=== PATIENT | male | born 1940 | race Caucasian/White ===

== ENCOUNTER 2017-01-23 13:56 | Emergency (ER) | payer MEDICARE, BC ==
[2017-01-23 14:16] VITALS: BP 139/76
--- NOTE | 2017-01-23 14:37 | UC ---
Shoulder Pain HPI - HPI Summary HPI Summary: The patient comes in today for: 1. Shoulder pain: Onset: One month. Palliative/provocative: No Rx taken. Abduction makes it worse. Quality: [place]: Right shoulder. Severity: 3/10 Time: Constant. Associated symptoms: Numbness/weakness: None. Injury: He fell on the left shoulder. He slipped on the ice. *. - History of Current Complaint Chief Complaint: UCGeneralIllness Stated Complaint: RIGHT SHOULDER PAIN Time Seen by Provider: 01/23/17 14:31 Hx Obtained From: Patient - Allergies/Home Medications Allergies/Adverse Reactions: Allergies Allergy/AdvReac Type Severity Reaction Status Date / Time Celecoxib [From Celebrex] Allergy Severe Hives Verified 01/23/17 14:03 Statins Allergy Severe irregular Verified 01/23/17 14:03 heart rate Terbinafine [From Lamisil] Allergy Severe Hives Verified 01/23/17 14:03 Home Medications: Home Medications Amoxicillin (*) [Amoxicillin 875 MG (*)] 1 tab PO Q8HR 01/23/17 [History Confirmed 01/23/17] Demeclocycline TAB* [Declomycin TAB*] 300 mg PO SEE INSTRUCTIONS 01/23/17 [ History Confirmed 01/23/17] PMH/Surg Hx/FS Hx/Imm Hx Previously Healthy: No - Low sodium. Endocrine History Of: Denies: Diabetes, Thyroid Disease, Hyperthyroidism, Hypothyroidism, Dyslipidemia Cardiovascular History Of: Reports: Cardiac Disorders - History of A-fib.- No longer in A-Fib, Hypertension - On amlodipine for blood pressure. Denies: Pacemaker/ICD, Myocardial Infarction, Congestive Heart Failure, Atrial Fibrillation, Deep Vein Thrombosis, Bleeding Disorders Respiratory History Of: Denies: COPD, Asthma, Bronchitis, Pneumonia, Pulmonary Embolism GI/ History Of: Denies: Gastroesophageal Reflux, Ulcer, Gastrointestinal Bleed, Gall Bladder Disease, Kidney Stones, Diverticulitis, Renal Disease, Urosepsis Neurological History Of: Denies: TIA, CVA, Dementia, Seizures, Migraine Psychological History Of: Denies: Anxiety, Depression, Bipolar Disorder, Schizophrenia, Post Traumatic Stress Disorder Cancer History Of: Denies: Lung Cancer, Colorectal Cancer, Breast Cancer, Prostate Cancer, Cervical Cancer Other History Of: Negative For: HIV, Hepatitis B, Hepatitis C, Anticoagulant Therapy - Surgical History Surgical History: Yes Surgery Procedure, Year, and Place: CAROTID ARTERECTOMY, APPENDECTOMY - Family History Known Family History: Positive: Cardiac Disease, Hypertension - Social History Occupation: Retired Alcohol Use: None Substance Use Type: None Smoking Status (MU): Former Smoker When Did the Patient Quit Smoking/Using Tobacco: 1980 Review of Systems Constitutional: Negative Skin: Negative Eyes: Negative ENT: Negative Respiratory: Negative Cardiovascular: Negative Gastrointestinal: Negative Genitourinary: Negative Musculoskeletal: Arthralgia, Myalgia All Other Systems Reviewed And Are Negative: Yes Physical Exam Triage Information Reviewed: Yes Appearance: Well-Appearing, No Pain Distress, Well-Nourished Vital Signs: Initial Vital Signs Temp 99.2 F 01/23/17 14:10 Pulse 59 01/23/17 14:10 Resp 16 01/23/17 14:10 BP 139/76 01/23/17 14:10 Pulse Ox 99 01/23/17 14:10 Vital Signs Reviewed: Yes Eyes: Positive: Conjunctiva Clear. Negative: Discharge ENT: Positive: Hearing grossly normal. Negative: Pharyngeal erythema, Nasal congestion, Nasal drainage, TM bulging, TM dull, TM red, Tonsillar swelling, Tonsillar exudate Dental: Negative: Gross Decay/Caries @, Dental Fracture @ Neck: Positive: Supple, Nontender, No Lymphadenopathy. Negative: Nuchal Rigidity Respiratory: Positive: Lungs clear, No respiratory distress, No accessory muscle use. Negative: Crackles, Wheezing Cardiovascular: Positive: RRR, No Murmur Abdomen Description: Positive: Nontender, No Organomegaly, Soft. Negative: Distended, Guarding Musculoskeletal: Positive: Strength Intact, ROM Intact, Other: - He has tenderness inferior laterally of the right shoulder. No biceps tendon tenderness. There is good internal rotation and external rotation, but there was some tenderness with internal rotation stress. Neurological: Positive: Alert, Muscle Tone Normal Psychological: Positive: Age Appropriate Behavior, Consolable Skin: Negative: rashes, breakdown Diagnostics - Laboratory Diagnostic Studies Completed/Ordered: Right shoulder: no fracture or calcific tendonitis - Radiology No standard instances Xray Interpretation: No Acute Changes Radiology Interpretation Completed By: Radiologist Shoulder Course/Dx - Course Course Of Treatment: Patient was told of his treatment options. He wanted prescription ibuprofen. - Differential Dx/Diagnosis Differential Diagnosis/HQI/PQRI: Bursitis Provider Diagnoses: Right shoulder tendonitis, bursitis Discharge - Discharge Plan Condition: Stable Disposition: HOME Patient Education Materials: Shoulder Sprain (ED), Tendinitis (ED), Shoulder Bursitis (ED) Referrals: No Primary Care Phys,NOPCP [Primary Care Provider] - 1 Week (Please see your primary care provider in about a week. If you don't have a primary care provider, please reference the included sheet of local provider. If you get worse, please be seen sooner.)
--- NOTE | 2017-01-23 15:05 | RAD ---
INDICATION: Right shoulder pain COMPARISON: None TECHNIQUE: AP, lateral, and oblique views were obtained. FINDINGS: The bony structures, joint spaces, and soft tissues are normal for age. IMPRESSION: NO ACUTE BONY FINDINGS OR SIGNIFICANT OSTEOARTHRITIC CHANGE
== END 2017-01-23 15:33 | disposition home or self-care (01) ==
LOC: UCCORT 13:56
DX: M75.81 Other shoulder lesions, right shoulder (principal); M75.51 Bursitis of right shoulder; E87.1 Hypo-osmolality and hyponatremia; I10 Essential (primary) hypertension; Z87.891 Personal history of nicotine dependence
CPT/HCPCS: 99212; G0463

== ENCOUNTER 2017-09-01 13:39 | Day surgery (SDC) | payer MEDICARE, BC ==
--- NOTE | 2017-08-26 19:53 | HP ---
CC: Dr. Nayak; Dr. Dayron Frausto * PREOPERATIVE HISTORY AND PHYSICAL: DATE OF ADMISSION: 09/01/17 This patient is scheduled for a same day surgery admission by Dr. Pereira on 09/01/17. ATTENDING SURGEON: Rolando Pereira MD * (dictated by Sindy Muhammad NP). CHIEF COMPLAINT: Right inguinal hernia. HISTORY OF PRESENT ILLNESS: The patient is a 77-year-old male recently evaluated by Dr. Pereira for a right inguinal hernia. 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 He presented to the urgent care center in [place] on 08/14/17 and was diagnosed with a right inguinal hernia and referred to [facility]. He reports that the burning sensation is worse if he stands for any length of time ; he denies any nausea, vomiting, constipation or dysuria. He is status post open appendectomy for a ruptured appendix in 2008. Dr. Pereira examined the patient and notes a reducible right inguinal hernia which is moderately tender. Dr. Pereira reviewed the findings with the patient and has recommended open right inguinal hernia repair with mesh as a same-day surgery procedure. He discussed the nature of the surgical procedure, the rationale for the procedure , the relevant risks, benefits and today I reviewed the typical postoperative care and recovery. The patient has had a chance to ask questions and stated that he understands the information and is satisfied with the answers given to his questions. He will sign surgical consent on the day of surgery. PAST MEDICAL HISTORY: 1. Hypertension. 2. Chronic kidney disease stage 2 by the patient's report. 3. Atrial fibrillation, none recently. 4. Hyponatremia, possibly SIADH and takes demeclocycline as needed based on lab work. 5. Syncopal episodes with a negative workup with the last episode in June 2016. He is followed for primary care by Dr. Nayak and for Cardiology by Dr. Dayron Frausto in [place]. PAST SURGICAL HISTORY: 1. Left carotid endarterectomy in 2007. 2. Open appendectomy in 2008. MEDICATIONS: 1. Metoprolol 18 mg daily. 2. Amlodipine 2.5 mg p.o. daily as needed based on his blood pressure. 3. Demeclocycline 300 mg p.o. daily as directed based on lab work, specifically sodium level, and he is followed by his primary care provider for this. ALLERGIES: CELEBREX caused rash, TERBINAFINE caused rash, MAGNESIUM SUPPLEMENT caused atrial fibrillation and STATINS caused an unspecified reaction. FAMILY HISTORY: No known anesthesia complications or bleeding tendencies or history of blood clots. SOCIAL HISTORY: He lives alone. A friend named Beth accompanied him today and he will be staying at her house postoperatively; he quit smoking in 1980. He rarely drinks alcohol and denies the use of other substances. REVIEW OF SYSTEMS: Constitutional: No fevers, chills, excessive fatigue or weight loss. Endocrine: No diabetes or thyroid disease. Hematologic: No easy bruising or bleeding. No previous blood transfusions. Respiratory: No dyspnea on exertion. No chronic cough. Cardiovascular: No anginal chest pain , palpitations or recent syncopal episodes. He will have a preoperative evaluation by Dr. Frausto on 08/28/17, and he will also have a preoperative visit with Dr. Nayak on , 08/27/17, and those clearance notes will be forwarded to the preadmission area. Gastrointestinal: No nausea , vomiting, diarrhea or chronic constipation. No change in bowel habits. Genitourinary: No dysuria. Musculoskeletal: No complaints of back or joint pain. Neurologic: No headache, blurred vision, areas of focal weakness or numbness. Previous history of fainting, none since June 2016. General: No history of deep vein thrombosis or pulmonary embolism. No history of anesthesia complications. PHYSICAL EXAMINATION GENERAL SURVEY: The patient is a 77-year-old male, well developed, well nourished in no acute distress. VITAL SIGNS: Height 69 inches, weight 160 pounds, body mass index 23.6. Blood pressure 122/70, pulse 72 and regular, respiratory rate 16, temperature 96.9 tympanic. HEENT: Benign. NECK: Supple. Well-healed left carotid endarterectomy scar. No carotid bruits. No cervical lymphadenopathy. LUNGS: Breath sounds bilaterally clear and equal. HEART: Regular rate and rhythm. No murmurs or rubs appreciated. ABDOMEN: Active bowel sounds. Soft and nondistended. Well-healed lower midline scar. No obvious masses or organomegaly. Inguinal exam was done by Dr. Pereira revealed a reducible right inguinal hernia which is moderately tender. No left inguinal hernia noted, bilateral descended testes. BACK: No CVA tenderness. RECTAL EXAM: Deferred. EXTREMITIES: Warm without edema or skin ulcerations. NEUROLOGIC: Alert and oriented x3, steady gait. SKIN: Warm, dry, intact. IMPRESSION: Right inguinal hernia. PLAN: Same-day surgery admission to Dr. Pereira' service on 09/01/17, for open right inguinal hernia repair with mesh. REEMA MUHAMMAD, [employer] [id number]/C[employer] #: [id number] MTDD
[~2017-09-01 13:39] MED LIST: Acetaminophen TAB* 325 MG PO ONE; Buffered Lidocaine 0.9% SYRIN* 5 ML/SYR SYRINGE INTRADERM ONE; Dexamethasone IV* 4 MG/ML 1 ML (4 MG) IV SLOW PU ONE; Famotidine IV* 10 MG/ML 2 ML (20 mg) IV ONE
[2017-09-01] MEDS ORDERED: Lidocaine 2% PF * 5 ML VIAL ONE (13:58)
[2017-09-01] MEDS ORDERED: fentaNYL* 50 MCG/ML 2 ML VIAL (100 MCG VIAL) ONE (13:58)
[2017-09-01] MEDS ORDERED: Midazolam* 1 MG/ML 2 ML VIAL (2 MG) ONE (13:58)
[2017-09-01] MEDS ORDERED: Dexamethasone IV* 4 MG/ML 1 ML (4 MG) ONE (14:08)
[2017-09-01] MEDS ORDERED: Famotidine IV* 10 MG/ML 2 ML (20 mg) ONE (14:08)
[2017-09-01] MEDS ORDERED: ceFAZolin 2 GM PREMIX (*) 2 GM/50 ML BAG IVPB ONE (14:09)
[2017-09-01] MEDS ORDERED: Acetaminophen TAB* 325 MG ONE (14:09)
[2017-09-01] MEDS ORDERED: Buffered Lidocaine 0.9% SYRIN* 5 ML/SYR SYRINGE ONE (14:09)
[2017-09-01] MEDS ORDERED: Propofol* 500 MG/50 ML BTL ONE (14:10)
[2017-09-01] MEDS ORDERED: fentaNYL* 50 MCG/ML 2 ML VIAL (100 MCG VIAL) IV PRN (14:29)
[2017-09-01] MEDS ORDERED: Ondansetron INJ* 2 MG/ML VIAL IV PRN (14:29)
[2017-09-01] MEDS ORDERED: oxyCODONE TAB* 5 MG TAB PO PRN (14:29)
[2017-09-01] MEDS ORDERED: HYDROmorphone INJ* 1 MG/ML CARPUJECT SYRINGE IV PRN (14:29)
[2017-09-01] MEDS ORDERED: HYDROcodone/ACETAMIN 5-325 MG* 1 TAB PO PRN (14:29)
[2017-09-01] MEDS ORDERED: Scopolamine 1.5 mg* PATCH TRANSDERM PRN (14:29)
[2017-09-01] MEDS ORDERED: Lidocaine 1% MPF wEPI 200,000* 30 ML SDV ONE (14:40)
[2017-09-01] MEDS ORDERED: Bupivacaine 0.25% SDV* 30 ML ONE (14:40)
[2017-09-01] MEDS ORDERED: Bupivacaine 0.5% SDV PF* 30 ML VIAL ONE (15:32)
[2017-09-01] MEDS ORDERED: Ondansetron INJ* 2 MG/ML VIAL ONE (15:40)
[2017-09-01] MEDS ORDERED: Ketorolac INJ* 30 MG/ML 1 ML VIAL ONE (15:40)
[2017-09-01] MEDS ORDERED: oxyCODONE/Acetamin 5/325 MG* TAB PO PRN (16:30)
[2017-09-01 17:59] VITALS: BP 149/65
--- NOTE | 2017-09-02 04:48 | OP ---
CC: Dr. Alicia [place], [place] * DATE OF OPERATION: 09/01/17 - [facility] DATE OF : [birth year]. SURGEON: Rolando Pereira MD. MANAGER INTEGRATION: TENA Hernández. ANESTHESIOLOGIST: Dr. French. ANESTHESIA: Local MAC. PRE-OP DIAGNOSIS: Right inguinal hernia. POST-OP DIAGNOSIS: Right inguinal hernia. OPERATIVE PROCEDURE: Open right inguinal hernia repair with mesh. ESTIMATED BLOOD LOSS: Minimal. IV FLUIDS: Crystalloids. SPECIMENS: None. DRAINS: None. COMPLICATIONS: None. COUNTS: The instrument, needle, and sponge counts were correct. DESCRIPTION OF PROCEDURE: The patient was brought to the operating room and placed on the table supine. Sequential compression devices were placed on both lower extremities. Intravenous sedation was administered. The right groin was prepped and draped in the usual sterile fashion. Appropriate antibiotics were given and a time-out was performed. Local anesthetic was infiltrated as a field block in the right groin and an oblique skin incision was crated, approximately 5 cm long and the subcutaneous tissues were divided with cautery. External oblique aponeurosis was identified and additional anesthetic was infiltrated beneath this. The aponeurosis was opened along in line with its fibers through the superficial ring. The ilioinguinal nerve was identified, mobilized, and preserved laterally. The contents of the inguinal canal were isolated with a quarter-inch [place] drain at the level of the pubic tubercle. Dissection revealed the presence of an indirect inguinal hernia and the sac was freed from the cord and twisted upon itself, ligated with 2-0 Vicryl and then divided to allow to retract beyond the deep ring. The repair was performed with the Medtronic ProGrip mesh. The mesh was positioned with 1 cm overlap of the pubic tubercle and the flap was unfolded in order to cover the entire floor of the canal with the cord egress through the central opening. The overlapping tab of the mesh was positioned and the mesh was noted to be in excellent position, laying right across the tissues and tucked beneath the external oblique aponeurosis laterally with some overlap along the shelving edge. The ilioinguinal nerve had been returned to its original position before completing the mesh placement and the external oblique aponeurosis was run closed with 2-0 Vicryl. The Ruby's was closed with 3-0 Vicryl the skin was closed with 4-0 Monocryl in a subcuticular fashion. Steri-Strips were applied. The patient tolerated the procedure well. He was awakened and transferred to the recovery room in stable condition. [id number]/[facility] #: [id number] MTDD
[2017-09-04] MEDS ORDERED: Scopolamine PATCH Remove* 1 NOTE MISC PATCH OFF ONE (14:30)
== END 2017-09-01 17:55 | disposition home or self-care (01) ==
LOC: OR 13:39
PROVIDERS: ATTEND Surgery
DX: K40.90 Unilateral inguinal hernia, without obstruction or gangrene, not specified as recurrent (principal); I12.9 Hypertensive chronic kidney disease with stage 1 through stage 4 chronic kidney disease, or unspecified chronic kidney disease; N18.2 Chronic kidney disease, stage 2 (mild); E87.1 Hypo-osmolality and hyponatremia; I48.91 Unspecified atrial fibrillation; M35.00 Sjogren syndrome, unspecified; I65.29 Occlusion and stenosis of unspecified carotid artery; Z88.6 Allergy status to analgesic agent; Z88.8 Allergy status to other drugs, medicaments and biological substances; Z87.891 Personal history of nicotine dependence
CPT/HCPCS: A9270-GY; C1781; J0690; J1100; J1885; J2001; J2250; J2405; J2704; J3010

== ENCOUNTER 2018-05-20 09:50 | Emergency (ER) | payer MEDICARE, BC ==
[2018-05-20 10:23] VITALS: BP 129/73
--- NOTE | 2018-05-20 10:48 | UC ---
Lower Extremity/Ankle HPI - HPI Summary HPI Summary: This is a 78-year-old male who presents with complaints of redness swelling itching and mild discomfort to his right lateral ankle and foot following being stung by an unknown insect 2 days ago. Patient does report that he visualized a stinger which he immediately removed by scraping with a knife. States moderate to severe swelling of the ankle and foot yesterday to the point where he had difficulty putting on his shoe. Today he continues to have mild erythema especially when his foot is down, mild pruritus, however he states that the swelling has improved some. Denies any chest pain, shortness of breath , swelling of the lips tongue or throat, fever or chills. - History of Current Complaint Chief Complaint: Antoinette Stated Complaint: RIGHT FOOT/ANKLE INSECT BITE Time Seen by Provider: 05/20/18 10:11 Hx Obtained From: Patient Onset/Duration: Sudden Onset Severity Initially: Moderate Severity Currently: Mild Pain Intensity: 0 Aggravating Factor(s): Standing, Other - Having leg in dependent position Alleviating Factor(s): Elevation Able to Bear Weight: Yes - Allergies/Home Medications Allergies/Adverse Reactions: Allergies Allergy/AdvReac Type Severity Reaction Status Date / Time celecoxib [From Celebrex] Allergy Hives Verified 05/20/18 10:19 magnesium Allergy Atrial Verified 05/20/18 10:24 Fibrillation, Syncope Ccxgxrt-Syh-Ilp Reductase Allergy Irregular Verified 05/20/18 10:19 Inhibitor Heart Rate terbinafine [From Lamisil] Allergy Hives Verified 05/20/18 10:24 Home Medications: Home Medications Metoprolol Tartrate TAB* [Lopressor TAB*] 12.5 mg PO BID 05/20/18 [History Confirmed 05/20/18] Rivaroxaban TAB(*) [Xarelto 10 mg (*)] 20 mg PO DAILY 05/20/18 [History Confirmed 05/20/18] Terbinafine [Lamisil At] 1 applic TOPICAL DAILY 05/20/18 [History Confirmed 06/29] PMH/Surg Hx/FS Hx/Imm Hx Previously Healthy: Yes Endocrine History: Dyslipidemia Cardiovascular History: Atrial Fibrillation Other History Of: Negative For: HIV, Hepatitis B, Hepatitis C, Anticoagulant Therapy - Surgical History Surgical History: Yes Surgery Procedure, Year, and Place: CAROTID ENDARTERECTOMY. APPENDECTOMY. BILATERAL CATARACT REMOVAL WITH LENS IMPLANT - Family History Known Family History: Positive: Cardiac Disease, Hypertension - Social History Occupation: Retired Lives: Alone Alcohol Use: None Substance Use Type: None Smoking Status (MU): Former Smoker Amount Used/How Often: 1 PPD X 23 YEARS Have You Smoked in the Last Year: No When Did the Patient Quit Smoking/Using Tobacco: 1980 - Immunization History Most Recent Influenza Vaccination: July 2017 Most Recent Tetanus Shot: "I've had one within the last ten years." Review of Systems Constitutional: Negative Skin: Other - Erythema Respiratory: Negative Cardiovascular: Negative Motor: Negative Neurovascular: Negative Musculoskeletal: Negative Is Patient Immunocompromised?: No All Other Systems Reviewed And Are Negative: Yes Physical Exam Triage Information Reviewed: Yes Appearance: Well-Appearing, No Pain Distress, Well-Nourished Vital Signs: Initial Vital Signs Temp 98.1 F 05/20/18 10:14 Pulse 78 05/20/18 10:14 Resp 16 05/20/18 10:14 BP 129/73 05/20/18 10:14 Pulse Ox 100 05/20/18 10:14 Vital Signs Reviewed: Yes ENT: Positive: Other - Airway patent Respiratory: Positive: No respiratory distress Cardiovascular: Positive: Pulses Normal, Brisk Capillary Refill Musculoskeletal Exam: Normal Neurological: Positive: Other: - Sensation intact Skin: Positive: Other - Patient with mild erythema to right lateral ankle and dorsal foot. Mild to moderate edema is present in these areas as well. There are 2 small intact blisters at the base of the third and fourth toes. There are no open lesions of the foot or between the toes. Mildly increased warmth to touch. Foot is nontender to palpation. Lower Extremity Course/Dx - Course Course Of Treatment: 78-year-old gentleman presents with a localized reaction following sting by an unknown insect to his right ankle 2 days ago. On exam he' s got some mild erythema, edema, and 2 intact blisters at the base of the third and fourth toes. There is some concern that the blistering may represent an early infection. Case was discussed with Dr. Murguia who evaluated the patient concurrently with me. Will treat patient with a 5 day course of prednisone and an [id number]-[id number] nondrowsy antihistamine for the local reaction. Will also cover with a seven-day course of Bactrim DS 2 tabs daily for 7 days for the possibility of an early infection. Patient is to follow-up with his primary care provider in 3 days if there is no improvement in symptoms. He is to seek immediate medical attention emergency room for any fever or worsening of symptoms. Patient verbalizes understanding and agrees with plan of care. - Differential Dx/Diagnosis Provider Diagnoses: Infected insect sting Discharge - Sign-Out/Discharge Documenting (check all that apply): Patient Departure - Discharge Plan Condition: Stable Disposition: HOME Prescriptions: predniSONE [Prednisone 20 MG TAB] 40 mg PO DAILY #10 tablet Sulfamethox/Trimethoprim DS* [Bactrim DS 800/160 TAB*] 1 tab PO BID #14 tab Patient Education Materials: Insect Bite or Sting (ED) Referrals: Alicia Nayak MD [Primary Care Provider] - 3 Days (if no improvement) Additional Instructions: Take prednisone 2 tabs once daily for the next 5 days to help reduce swelling. Take an qecr-xcd-bjfhviw nondrowsy antihistamine such as Martha, Zyrtec, or Claritin according to directions once daily to help with itching. You may use the generic forms of these medications. I have a small concern that there may be some infection present therefore we will start you on an antibiotic. Take Bactrim DS one tab twice daily for 7 days. Should keep her foot elevated to help reduce swelling. Using a cool cloth may also help with some of the discomfort. Follow-up with your primary care provider in 3 days if there is no improvement in her symptoms. Seek immediate medical attention if you develop fever greater than 100.5 F, have increased pain, redness that spreads, increased swelling, or any worsening of symptoms. - Billing Disposition and Condition Condition: STABLE Disposition: Home Attestation Statement User Type: Provider - Past by provider to get patient's foot. Patient does have diffuse swelling of his foot. Mild erythema at the site of the sting right lateral malleolus. Patient does have 2 small blisters at the base of his first and second toe. Nontender. No fluctuance. Good cap refill. Good pedal pulse. No wounds noted between toes at the base of toes on leg. Concern for early infection given the blisters, diffuse swelling and erythema. recommend prednisone abx elevate strict return precuation
== END 2018-05-20 10:55 | disposition home or self-care (01) ==
LOC: UCCORT 09:50
DX: Z87.891 Personal history of nicotine dependence (principal); T63.444A Toxic effect of venom of bees, undetermined, initial encounter; Y92.9 Unspecified place or not applicable; L08.9 Local infection of the skin and subcutaneous tissue, unspecified; Z88.3 Allergy status to other anti-infective agents; Z88.8 Allergy status to other drugs, medicaments and biological substances; Z88.6 Allergy status to analgesic agent
CPT/HCPCS: 99212; G0463

== ENCOUNTER 2018-09-14 12:40 | Emergency (ER) | payer MEDICARE, BC ==
[2018-09-14 13:07] VITALS: BP 143/96
[2018-09-14] MEDS ORDERED: Lidocaine 2% PF * 5 ML VIAL INJ ONE (13:09)
[2018-09-14] MEDS ORDERED: Tetan/Diph/Pertus SYR(Tdap)* 0.5 ML SYR(BOOSTRIX) use SYR IM ONE (13:12)
--- NOTE | 2018-09-14 14:11 | UC ---
Laceration HPI - HPI Summary HPI Summary: laceration left thumb x 1 day cut his left thumb on the table saw this morning + bleeding , pt. is on blood thinner - History Of Current Complaint Chief Complaint: UCLaceration Stated Complaint: LEFT THUMB LACERATION Time Seen by Provider: 09/14/18 13:09 Hx Obtained From: Patient Laceration Location: Finger - left thumb Mechanism Of Injury: Sharp Trauma - table saw Onset/Duration: Sudden Onset, Lasting Hours - 2, Still Present Severity: Moderate Pain Intensity: 8 Hands: 1 - laceration left thumb - Allergies/Home Medications Allergies/Adverse Reactions: Allergies Allergy/AdvReac Type Severity Reaction Status Date / Time celecoxib [From Celebrex] Allergy Hives Verified 09/14/18 12:59 magnesium Allergy Atrial Verified 09/14/18 12:59 Fibrillation, Syncope Ahmrwtm-Zfi-Ehs Reductase Allergy Irregular Verified 09/14/18 12:59 Inhibitor Heart Rate terbinafine [From Lamisil] Allergy Hives Verified 09/14/18 12:59 PMH/Surg Hx/FS Hx/Imm Hx Cardiovascular History: Hypertension, Atrial Fibrillation Other History Of: Negative For: HIV, Hepatitis B, Hepatitis C, Anticoagulant Therapy - Surgical History Surgical History: Yes Surgery Procedure, Year, and Place: CAROTID ENDARTERECTOMY. APPENDECTOMY. BILATERAL CATARACT REMOVAL WITH LENS IMPLANT. HERNIA REPAIR - Family History Known Family History: Positive: Cardiac Disease, Hypertension - Social History Alcohol Use: None Substance Use Type: None Smoking Status (MU): Former Smoker Amount Used/How Often: 1 PPD X 23 YEARS Have You Smoked in the Last Year: No When Did the Patient Quit Smoking/Using Tobacco: 1980 - Immunization History Most Recent Influenza Vaccination: July 2017 Most Recent Tetanus Shot: WITHIN 5 YEARS HE BELIEVES Review of Systems All Other Systems Reviewed And Are Negative: Yes Constitutional: Positive: Negative Eyes: Positive: Negative ENT: Positive: Negative Respiratory: Positive: Negative Cardiovascular: Positive: Negative Is Patient Immunocompromised?: No Physical Exam Triage Information Reviewed: Yes Appearance: Well-Appearing, No Pain Distress, Well-Nourished Vital Signs: Initial Vital Signs Temp 97.8 F 09/14/18 13:01 Pulse 86 12/04/18 13:01 Resp 18 09/14/18 13:01 BP 143/96 09/14/18 13:01 Pulse Ox 98 09/14/18 13:01 Vital Signs Reviewed: Yes Eyes: Positive: Conjunctiva Clear ENT: Positive: Normal ENT inspection, Hearing grossly normal, Pharynx normal Neck: Positive: Supple, Nontender, No Lymphadenopathy Respiratory: Positive: Chest non-tender, Lungs clear, Normal breath sounds Cardiovascular: Positive: RRR, No Murmur, Pulses Normal Skin: Positive: Other - left thumb : large deep laceration 2 cm , + bleeding Laceration Repair - Laceration Repair 1 Procedure Summary: laceration left thumb Description: Irregular Laceration Size After Repair: Length (cm) - 2, Width (mm) - 3, Depth (mm) - 5 Modified For Repair: No Type Injection: Digital Anesthesia Used: 2.0% Lido - 5 ml Cleansing Completed Via Routine Prep: Yes Irrigation With Pressure Irrigation Device: Yes Closure Material: Sutures - 4.0 nylon Closure Method: Single Layer Suture Of: Skin Suture Type: Nylon Laceration Course/Dx - Diagnosis Provider Diagnosis: Finger laceration Discharge - Sign-Out/Discharge Documenting (check all that apply): Patient Departure All imaging exams completed and their final reports reviewed: No Studies - Discharge Plan Condition: Stable Disposition: HOME Prescriptions: Amoxicillin/Clavulanate TAB* [Augmentin TAB 875*] 875 mg PO BID #20 tab Patient Education Materials: Finger Laceration (ED) Referrals: Alicia Nayak MD [Primary Care Provider] - Additional Instructions: please follow up in 2 days for wound check then suture removal in 10 days - Billing Disposition and Condition Condition: STABLE Disposition: Home
== END 2018-09-14 14:17 | disposition home or self-care (01) ==
LOC: UCCORT 12:40
DX: S61.012A Laceration without foreign body of left thumb without damage to nail, initial encounter (principal); W31.2XXA Contact with powered woodworking and forming machines, initial encounter; Y93.9 Activity, unspecified; Y92.9 Unspecified place or not applicable; Z79.01 Long term (current) use of anticoagulants
CPT/HCPCS: 12001; 90471; 90715; 99212; G0463

== ENCOUNTER 2018-09-16 14:17 | Emergency (ER) | payer MEDICARE, BC ==
[2018-09-16 14:30] VITALS: BP 127/68
--- NOTE | 2018-09-16 14:52 | UC ---
Laceration HPI - HPI Summary HPI Summary: here for wound re-check 2 days post repair of laceration of left thumb on a table saw. Had persistent oozing from wound until this morning secondary to anticoagulant. - History Of Current Complaint Chief Complaint: UCWounds Stated Complaint: LAC RE-CHECK Time Seen by Provider: 09/16/18 14:35 Hx Obtained From: Patient Mechanism Of Injury: Sharp Trauma Onset/Duration: Sudden Onset Pain Intensity: 1 Aggravating Factors: Movement Related History: Dominant Hand Right - Allergies/Home Medications Allergies/Adverse Reactions: Allergies Allergy/AdvReac Type Severity Reaction Status Date / Time celecoxib [From Celebrex] Allergy Hives Verified 09/14/18 12:59 magnesium Allergy Atrial Verified 09/14/18 12:59 Fibrillation, Syncope Hsaqouw-Weg-Doz Reductase Allergy Irregular Verified 09/14/18 12:59 Inhibitor Heart Rate terbinafine [From Lamisil] Allergy Hives Verified 09/14/18 12:59 PMH/Surg Hx/FS Hx/Imm Hx Cardiovascular History: Atrial Fibrillation Other History Of: Negative For: HIV, Hepatitis B, Hepatitis C, Anticoagulant Therapy - Surgical History Surgical History: Yes Surgery Procedure, Year, and Place: CAROTID ENDARTERECTOMY. APPENDECTOMY. BILATERAL CATARACT REMOVAL WITH LENS IMPLANT. HERNIA REPAIR - Family History Known Family History: Positive: Cardiac Disease, Hypertension - Social History Occupation: Retired Lives: Alone Alcohol Use: None Substance Use Type: None Smoking Status (MU): Former Smoker Amount Used/How Often: 1 PPD X 23 YEARS Have You Smoked in the Last Year: No When Did the Patient Quit Smoking/Using Tobacco: 1980 - Immunization History Most Recent Influenza Vaccination: July 2017 Most Recent Tetanus Shot: WITHIN 5 YEARS HE BELIEVES Review of Systems All Other Systems Reviewed And Are Negative: Yes Cardiovascular: Positive: Other - controlled atrial fibrillation, taking xarelto. Is Patient Immunocompromised?: No Physical Exam Triage Information Reviewed: Yes Appearance: Well-Appearing, No Pain Distress Vital Signs: Initial Vital Signs Temp 97.8 F 09/16/18 14:27 Pulse 81 09/16/18 14:27 Resp 20 09/16/18 14:27 BP 127/68 09/16/18 14:27 Pulse Ox 97 09/16/18 14:27 Respiratory: Positive: Lungs clear, Normal breath sounds Cardiovascular Exam: Other - irregular rate and rhythm. Neurological: Positive: Alert Psychological Exam: Normal Skin Exam: Other - laceration left thumb--well approximated but along the inferior border the skin is abraded and repairing by second intent approx 2 mm wide. No drainage. Minimal tenderness. Laceration Course/Dx - Course/Dx Course Of Treatment: continue dressing changes daily; complete course of augmentin. - Differential Dx - Laceration/Wound Differental Diagnoses: Avulsion, Laceration - Diagnosis Provider Diagnosis: Laceration of left thumb with damage to nail Discharge - Sign-Out/Discharge Documenting (check all that apply): Patient Departure All imaging exams completed and their final reports reviewed: Yes - Discharge Plan Condition: Stable Disposition: HOME Patient Education Materials: Care For Your Stitches (ED) Referrals: Alicia Nayak MD [Primary Care Provider] - Additional Instructions: Continue daily dressing changes, keeping the wound as clean and dry as possible. Complete full course of antibiotic. Follow up with your primary care provider for removal of sutures next or Thursday. - Billing Disposition and Condition Condition: STABLE Disposition: Home
== END 2018-09-16 15:12 | disposition home or self-care (01) ==
LOC: UCCORT 14:17
DX: Z51.89 Encounter for other specified aftercare (principal); S61.112D Laceration without foreign body of left thumb with damage to nail, subsequent encounter; X58.XXXD Exposure to other specified factors, subsequent encounter; Z79.01 Long term (current) use of anticoagulants; Z88.8 Allergy status to other drugs, medicaments and biological substances; Z87.891 Personal history of nicotine dependence
CPT/HCPCS: 99212; G0463

== ENCOUNTER 2018-10-04 10:30 | Emergency (ER) | payer MEDICARE, BC ==
[2018-10-04 11:08] VITALS: BP 171/91
--- NOTE | 2018-10-04 11:32 | UC ---
HPI Wound/Suture Re-check - HPI Summary HPI Summary: Patient was seen on 09/14 for a laceration that knicked the endo of the thumb and there was bone involvement, he was reseen2 days later, with good progress, patient removed the sutures himself. the wound dehisced and is painful at this time. - History Of Current Complaint Chief Complaint: UCGeneralIllness Stated Complaint: RECHECK LEFT THUMB LACERATION Time Seen by Provider: 10/04/18 11:16 Hx Obtained From: Patient Onset/Duration: Sudden Onset, Lasting Days Severity: Mild Pain Intensity: 0 - Allergies/Home Medications Allergies/Adverse Reactions: Allergies Allergy/AdvReac Type Severity Reaction Status Date / Time celecoxib [From Celebrex] Allergy Hives Verified 10/04/18 11:08 magnesium Allergy Atrial Verified 10/04/18 11:08 Fibrillation, Syncope Cqzluiu-Tzp-Vzx Reductase Allergy Irregular Verified 10/04/18 11:08 Inhibitor Heart Rate terbinafine [From Lamisil] Allergy Hives Verified 10/04/18 11:08 PMH/Surg Hx/FS Hx/Imm Hx Previously Healthy: Yes Other History Of: Negative For: HIV, Hepatitis B, Hepatitis C, Anticoagulant Therapy - Surgical History Surgical History: Yes Surgery Procedure, Year, and Place: CAROTID ENDARTERECTOMY. APPENDECTOMY. BILATERAL CATARACT REMOVAL WITH LENS IMPLANT. HERNIA REPAIR - Family History Known Family History: Positive: Cardiac Disease, Hypertension - Social History Alcohol Use: None Substance Use Type: None Smoking Status (MU): Former Smoker Amount Used/How Often: 1 PPD X 23 YEARS Have You Smoked in the Last Year: No When Did the Patient Quit Smoking/Using Tobacco: 1980 - Immunization History Most Recent Influenza Vaccination: July 2017 Most Recent Tetanus Shot: WITHIN 5 YEARS HE BELIEVES Review of Systems All Other Systems Reviewed And Are Negative: Yes Constitutional: Positive: Negative Skin: Positive: Other - large open wound on left thumb Eyes: Positive: Negative ENT: Positive: Negative Respiratory: Positive: Negative Cardiovascular: Positive: Negative Gastrointestinal: Positive: Negative Genitourinary: Positive: Negative Motor: Positive: Negative Neurovascular: Positive: Negative Musculoskeletal: Positive: Negative Neurological: Positive: Negative Psychological: Positive: Negative Is Patient Immunocompromised?: No Physical Exam Triage Information Reviewed: Yes Appearance: Well-Appearing, Well-Nourished, Pain Distress Vital Signs: Initial Vital Signs Temp 97.9 F 10/04/18 11:03 Pulse 73 10/04/18 11:03 Resp 16 10/04/18 11:03 BP 171/91 10/04/18 11:03 Pulse Ox 98 10/04/18 11:03 Vital Signs Reviewed: Yes Eye Exam: Normal ENT Exam: Normal Dental Exam: Normal Neck exam: Normal Respiratory Exam: Normal Cardiovascular Exam: Normal Abdominal Exam: Normal Bowel Sounds: Positive: Present Musculoskeletal Exam: Normal Neurological Exam: Normal Psychological Exam: Normal Skin: Positive: Significant Lesion(s) - open wound to left thumb Course/Dx - Course Course Of Treatment: hx obtained, exam performed ,meds reviewed, xray obtained neg, wound was cleansed and dressed, referred to surgeon for follow up care - Differential Dx - Laceration/Wound Differential Diagnoses: Dehiscence, Joint Infection - Diagnosis Provider Diagnosis: Dehiscence of wound of skin Discharge - Sign-Out/Discharge Documenting (check all that apply): Patient Departure All imaging exams completed and their final reports reviewed: Yes - Discharge Plan Condition: Stable Disposition: HOME Prescriptions: Cephalexin CAP* [Keflex CAP*] 500 mg PO TID #21 cap Patient Education Materials: Wound Infection (DC) Referrals: Alicia Nayak MD [Primary Care Provider] - German Lin MD [Medical Doctor] - Additional Instructions: 1. use the vaseline guaze twicea day for 2 days and then daily. 2. Keep it clean and dry 3. Take the antibiotic 4. Follow up with Dr Lin for follow up care - Billing Disposition and Condition Condition: STABLE Disposition: Home - Attestation Statements Provider Attestation: I was available for consult. This patient was seen by the RUSSEL. The patient was not presented to, seen by, or examined by me. -Avelino
== END 2018-10-04 12:26 | disposition home or self-care (01) ==
LOC: UCCORT 10:30
DX: T81.33XA Disruption of traumatic injury wound repair, initial encounter (principal); Z88.3 Allergy status to other anti-infective agents; Z88.8 Allergy status to other drugs, medicaments and biological substances; Z87.891 Personal history of nicotine dependence
CPT/HCPCS: 99212; G0463